=== PATIENT | male | born 1960 | race Caucasian/White ===

== ENCOUNTER 2018-06-28 20:10 | Emergency (ER) | payer MEDICAID, OTHER ==
--- NOTE | 2018-06-28 20:14 | ED PDOC ---
Arrival/HPI - General Historian: Patient - History of Present Illness Narrative History of Present Illness (Text): 06/28/18 20:14 58 y/o male, no significant pmh, nkda, last tetanus doesn't remember, c/o lt. hand 5th digit finger laceration x 2 hours. Pt. stated that he was cut by the metal murphy, no numbness or tingling, no night sweat, no rash, no dizziness, no night sweat, no palpitation, no other medical or psychological complaints. <Stew Atwood - Last Filed: 06/28/18 20:42> <Conrado Coats - Last Filed: 06/28/18 21:33> - General Time Seen by Provider: 06/28/18 20:14 Past Medical History - Provider Review Nursing Documentation Reviewed: Yes <Stew Atwood - Last Filed: 06/28/18 20:42> Family/Social History - Physician Review Nursing Documentation Reviewed: Yes Family/Social History: Unknown Family HX <Stew Atwood - Last Filed: 06/28/18 20:42> Allergies/Home Meds <Stew Atwood - Last Filed: 06/28/18 20:42> <Conrado Coats - Last Filed: 06/28/18 21:33> Allergies/Adverse Reactions: Allergies No Known Allergies Allergy (Verified 06/28/18 20:28) Review of Systems - Review of Systems Constitutional: absent: Fatigue, Fevers Eyes: absent: Vision Changes ENT: absent: Hearing Changes Respiratory: absent: SOB, Cough Cardiovascular: absent: Chest Pain Gastrointestinal: absent: Abdominal Pain, Diarrhea, Nausea, Vomiting Skin: Laceration. absent: Rash, Pruritis, Skin Lesions, Abscess, Ulcer, Cellulitis Neurological: absent: Headache, Dizziness Hemo/Lymphatic: absent: Adenopathy, Easy Bleeding Psychiatric: absent: Anxiety, Depression, Suicidal Ideation <Stew Atwood - Last Filed: 06/28/18 20:42> Physical Exam Vital Signs Reviewed: Yes Temperature: Afebrile Pulse: Regular Respiratory Rate: Normal Appearance: Positive for: Well-Appearing, Non-Toxic, Comfortable Pain Distress: None Mental Status: Positive for: Alert and Oriented X 3 - Systems Exam Head: Present: Atraumatic, Normocephalic Pupils: Present: PERRL Extroacular Muscles: Present: EOMI Conjunctiva: Present: Normal Ears: Present: NORMAL TM, Normal Canal. No: Erythema Mouth: Present: Moist Mucous Membranes Pharnyx: No: ERYTHEMA, EXUDATE, TONSILS ENLARGED Nose (External): Present: Atraumatic. No: Abrasion, Contusion, Laceration, Lesions Nose (Internal): Present: Normal Inspection, No Active Bleeding. No: Rhinorrhea, Septal Deviation, Septal Hematoma, Epistaxis Neck: Present: Normal Range of Motion Respiratory/Chest: Present: Clear to Auscultation, Good Air Exchange. No: Respiratory Distress, Accessory Muscle Use Cardiovascular: Present: Regular Rate and Rhythm, Normal S1, S2. No: Murmurs Abdomen: No: Tenderness, Distention, Peritoneal Signs Back: Present: Normal Inspection. No: CVA Tenderness, Midline Tenderness, Paraspinal Tenderness, Pain with Leg Raise, Decubitus Ulcer Upper Extremity: Present: Normal Inspection, Normal ROM, NORMAL PULSES, Neurovas cularly Intact, Capillary Refill < 2s, Other (Lt. hand 5th digit distal ventral visible approx. 1.25cm superficial laceration noted with no visible or palpable foreign bodies, no bony tenderness, no tendon injury, FROM without limitation, sensation intact, motor 5/5, +radial pulse, capillary refill< 2 seconds, neurovascular intact. ). No: Cyanosis, Edema, Deformity Lower Extremity: Present: Normal Inspection, NORMAL PULSES, Normal ROM, Neurovascularly Intact, Capillary Refill < 2 s. No: Edema, CALF TENDERNESS, Tenderness, Swelling, Deformity, Temperature Abnormalties Neurological: Present: GCS=15, CN II-XII Intact, Speech Normal, Motor Func Grossly Intact, Normal Cerebellar Funct, Gait Normal, Memory Normal Skin: Present: Warm, Dry, Normal Color. No: Rashes Psychiatric: Present: Alert, Oriented x 3, Normal Insight, Normal Concentration <Stew Atwood - Last Filed: 06/28/18 20:42> Vital Signs Temp Pulse Resp BP Pulse Ox 06/28/18 20:36 154/99 H 06/28/18 20:28 97.8 F 65 18 95 <Conrado Coats - Last Filed: 06/28/18 21:33> Medical Decision Making ED Course and Treatment: 06/28/18 21:10 -I offered suture but he declined. He insist on the skin dermabond which I explained to him that this is not the best option, will dermabond the wound. -Keflex and tdap ordered. -Discharge home with keflex, motrin for pain as needed, follow up with your own pmd and hand specialist within 2 days, return to the ER for any new or worsening signs or symptoms. <Stew Atwood - Last Filed: 06/28/18 20:42> - Medication Orders Current Medication Orders: Discontinued Medications Cephalexin Monohydrate (Keflex) 500 mg PO STAT STA; Protocol Stop: 06/28/18 20:49 Last Admin: 06/28/18 21:05 Dose: 500 mg Tetanus/Reduced Diphtheria/Acell Pertussis (Boostrix Vaccine Inj) 0.5 ml IM .ONCE ONE Stop: 06/28/18 20:49 Last Admin: 06/28/18 21:05 Dose: 0.5 ml Immunization Registry Document 06/28/18 21:05 (Rec: 06/28/18 21:05 [id number]) [facility]-Date provided 06/28/18 MAR Immunization Data Document 06/28/18 21:05 (Rec: 06/28/18 21:05 [id number]) Immunization Data Vaccine Information Sheet Given No <Conrado Coats - Last Filed: 06/28/18 21:33> - PA / MOLDING PRESS OPERATOR / Resident Statement KALPANA has reviewed & agrees with the documentation as recorded. <Stew Atwood - Last Filed: 06/28/18 20:42> - PA / MOLDING PRESS OPERATOR / Resident Statement KALPANA has reviewed & agrees with the documentation as recorded. <Conrado Coats - Last Filed: 06/28/18 21:33> Disposition/Present on Arrival - Present on Arrival Any Indicators Present on Arrival: No History of DVT/PE: No History of Uncontrolled Diabetes: No Urinary Catheter: No History of Decub. Ulcer: No - Disposition Have Diagnosis and Disposition been Completed?: Yes Disposition Time: 21:13 Patient Plan: Discharge <Stew Atwood - Last Filed: 06/28/18 20:42> <Conrado Coats - Last Filed: 06/28/18 21:33> - Disposition Diagnosis: Finger laceration, Non-compliant patient Disposition: HOME/ ROUTINE Condition: GOOD Additional Instructions: -Discharge home with keflex, motrin for pain as needed, follow up with your own pmd and hand specialist within 2 days, return to the ER for any new or worsening signs or symptoms. Prescriptions: Cephalexin [cephalexin] 500 mg PO TID #24 cap Ibuprofen [Motrin] 600 mg PO QID PRN #30 tab PRN Reason: Other Referrals: Arun Wilson MD [Staff Provider] - Follow up with primary [facility] [place]] - Follow up with primary Forms: WORK NOTE
[2018-06-28 20:28] VITALS: BMI 29.2
[2018-06-28 20:34] VITALS: PULSE 65; RESP 18; TEMP 97.8; O2SAT 95
[2018-06-28 20:36] VITALS: BP 154/99
[2018-06-28] MEDS ORDERED: TDAP Vaccine 0.5 mL Syr IM ONE (20:48)
== END 2018-06-28 21:41 | disposition home or self-care (01) ==
LOC: ED 20:10
DX: S61.217A Laceration without foreign body of left little finger without damage to nail, initial encounter (principal); W45.8XXA Other foreign body or object entering through skin, initial encounter; Z23 Encounter for immunization